=== PATIENT | female | born 1995 | race Caucasian/White ===

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

== ENCOUNTER 2017-07-15 05:56 | Emergency (ER) | payer OTHER ==
[2017-07-15 06:09] VITALS: RESP 20
[2017-07-15] MEDS ORDERED: ACETAMINOPHEN 500 MG TAB ONE (06:13)
[2017-07-15] MEDS ORDERED: ACETAMINOPHEN 500 MG TAB PO ONE (06:15)
--- NOTE | 2017-07-15 06:35 | EDPHY ---
H & P Stated Complaint: fever, cough Time Seen by Provider: 07/15/17 06:17 HPI/ROS: Chief Complaint: Fever, cough, body aches HPI: 21-year-old woman started having fever, cough and body aches yesterday afternoon. She has taken Motrin with some relief. She woke up this morning with a fever to 103. She has a dry nonproductive cough. She has generalized body aches. Some nausea but no vomiting. No diarrhea. No headache or neck stiffness. Does not have any past medical problems. Last menstrual period was 2 years ago, has implenon in place. No urinary urgency or frequency. ROS: 10 point Review of Systems is negative except as noted in the HPI. PMH: None Social History: No smoking, occasional alcohol, no recreational drug use Family History: non-contributory Physical Exam: Gen: Awake, Alert, No Distress HEENT: Nose: no rhinorrhea Eyes: PERRLA, EOMI Mouth: Moist mucosa Neck: Supple, no JVD Chest: nontender, lungs clear to auscultation Heart: S1, S2 normal, no murmur Abd: Soft, non-tender, no guarding Back: no CVA tenderness, no midline tenderness Ext: no edema, non-tender Skin: no rash Neuro: CN II-XII intact, Sensation grossly intact, Strength 5/5 in bilateral upper and lower extremities - Personal History Current Tetanus Diphtheria and Acellular Pertussis (TDAP): Yes - Medical/Surgical History Hx Asthma: No Hx Chronic Respiratory Disease: No Hx Diabetes: No Hx Cardiac Disease: No Hx Renal Disease: No Hx Cirrhosis: No Hx Alcoholism: No Hx HIV/AIDS: No Hx Splenectomy or Spleen Trauma: No Other PMH: DEPRESSION - Social History Smoking Status: Never smoked Constitutional: Initial Vital Signs Temperature (C) 38.7 C H 07/15/17 05:58 Heart Rate 125 H 07/15/17 05:58 Respiratory Rate 20 07/15/17 05:58 Blood Pressure 117/62 07/15/17 05:58 O2 Sat (%) 98 07/15/17 05:58 O2 Delivery Mode Room Air Allergies/Adverse Reactions: No Known Allergies Allergy (Unverified 10/07/16 13:22) Home Medications: Medication Instructions Recorded Cephalexin [Keflex (*)] 500 mg PO QID #20 cap 10/07/16 Ondansetron Odt [Zofran Odt 4 mg 4 mg PO Q4 PRN #10 tab 07/15/17 (*)] Medical Decision Making ED Course/Re-evaluation: 21-year-old pleasant well-appearing female with flu-like symptoms. Symptoms consistent with viral process. She is febrile here. Has been given Tylenol. She is not having any vomiting. She appears well hydrated. No historical or clinical findings suggestive of acute bacterial process. Will discharge with supportive treatment, alternating Tylenol and ibuprofen, oral hydration, follow- up with student health in several days. We have discussed the risks and benefits of Tamiflu if she is flu positive. Patient elects that if she is with positive she does not want to take this. 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 - Data Points Medications Given: Discontinued Medications Acetaminophen (Tylenol) 1,000 mg PO EDNOW ONE Stop: 07/15/17 06:16 Last Admin: 07/15/17 06:15 Dose: 1,000 mg Departure - Departure Disposition: Home, Routine, Self-Care Clinical Impression: Flu Condition: Good Instructions: Influenza (ED) Additional Instructions: Alternate acetaminophen (1000 mg) with ibuprofen (400 mg) every 4 hours as needed for fevers, chills, aches or pain. You may take Zofran as needed for nausea or vomiting. Make sure to drink plenty of liquids, Pedialyte is the best means of hydration. Follow up with [facility] in 2-3 days if symptoms are not improving. You would expect symptoms to last for about 7 days. Return to the emergency department for uncontrolled nausea vomiting, worsening headache, confusion, uncontrolled fever, or any other concerns. Referrals: NATALIO JEAN ,. [Clinic] - As per Instructions Stand Alone Forms: School Excuse Prescriptions: Ondansetron Odt [Zofran Odt 4 mg (*)] 4 mg PO Q4 PRN #10 tab PRN Reason: nausea
[2017-07-15 06:47] VITALS: BP 100/63; PULSE 103; TEMP 99.1; O2SAT 96
== END 2017-07-15 06:46 | disposition home or self-care (01) ==
DX: J11.1 Influenza due to unidentified influenza virus with other respiratory manifestations (principal)